=== PATIENT | male | born 1975 | race Caucasian/White ===

== ENCOUNTER 2019-06-15 20:54 | Emergency (ER) | payer OTHER, SELFPAY ==
[2019-06-15 20:58] VITALS: BP 135/101; PULSE 124; RESP 16; TEMP 36.8; O2SAT 96; BMI 22.4
== END 2019-06-16 00:31 | disposition left against medical advice (07) ==
PROVIDERS: Emergency Provider Emergency Medicine
DX: Z53.21 Procedure and treatment not carried out due to patient leaving prior to being seen by health care provider (principal)
CPT/HCPCS: 99281

== ENCOUNTER 2019-06-16 16:10 | Outpatient (CLI) | payer OTHER, SELFPAY ==
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
== END 2019-06-16 16:11 | disposition home or self-care (01) ==
LOC: RADWPI 16:12
PROVIDERS: Visit Provider Nurse Practitioner
DX: S62.336A Displaced fracture of neck of fifth metacarpal bone, right hand, initial encounter for closed fracture (principal); W22.8XXA Striking against or struck by other objects, initial encounter; M79.641 Pain in right hand

== ENCOUNTER 2019-11-22 20:24 | Emergency (ER) | payer OTHER, SELFPAY ==
[2019-11-22 20:27] VITALS: BP 149/82; PULSE 108; RESP 20; TEMP 36.8; O2SAT 95; BMI 23.0
--- NOTE | 2019-11-22 20:32 | XR_ITS ---
WS: [id number] RIGHT HAND: 3 VIEW(S) TECHNIQUE: PA, oblique and lateral. HISTORY: injury COMPARISON: 06/16/2019 Acute soft tissue and osseous injury involving the third DIP joint and distal phalanx. There is an av ulsion fracture at the DIP joint with a large amount of soft tissue injury. There is partial subluxat ion at the DIP joint. Chronic deformity involving the fifth metacarpal head and neck from an old healed fracture. XR/XR hand RT min 3V* [id number] IMPRESSION: 1. Acute avulsion fracture third finger DIP joint with adjacent soft tissue ed jessica. 2. Suspect a small amount of subluxation at the third DIP joint. 3. Remote healed fracture fifth metacarpal.
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
[2019-11-22] MEDS: LORazepam 1 mg Tablet PO (20:58)
[2019-11-22 22:14] VITALS: RESP 16
[2019-11-22] MEDS: morphine 4 mg/mL SDV 1 mL IM (22:14)
[2019-11-22] MEDS: tetanus-dipt-pertussis 0.5 mL SDV IM (22:15)
[2019-11-22 22:54] VITALS: BP 132/78; PULSE 85; RESP 18; TEMP 36.8; O2SAT 98
[2019-11-22 22:57] VITALS: BP 132/78; PULSE 85; RESP 18; TEMP 37.1; O2SAT 97
--- NOTE | 2019-11-22 23:00 | PC.NURSE ---
USE A FINGER SPLINT TO SUPPORT FINGER
--- NOTE | 2019-11-23 11:06 | DCPLANNER ---
accounting manager had message to schedule a follow up appointment for patient with ortho. accounting manager called the ortho clinic, spoke with Pat, gave clinic patients information. accounting manager was told that patients information would be printed and reviewed. Pat from ortho called case briefer back stating an appointment is scheduled for , November 24, 2019 at 12:[address] Proctor. Patient has [facility], case briefer called August with [facility], and informed her that patient was seen in the ED and that patient has a follow up appointment scheduled. accounting manager also sent patients [facility] to the [facility].
--- NOTE | 2019-11-24 14:01 | DCPLANNER ---
Patient had an appointment scheduled for 11.24.19 with ortho. Patient did attend the appointment.
== END 2019-11-22 23:01 | disposition home or self-care (01) ==
PROVIDERS: Emergency Provider Emergency Medicine; PCP Emergency Medicine Emergency Medical Services
DX: S62.632B Displaced fracture of distal phalanx of right middle finger, initial encounter for open fracture (principal); S61.312A Laceration without foreign body of right middle finger with damage to nail, initial encounter; W31.89XA Contact with other specified machinery, initial encounter; F17.210 Nicotine dependence, cigarettes, uncomplicated; Z23 Encounter for immunization
CPT/HCPCS: 12001; 12345; 29130; 73130; 90471; 90715; 96372; 99281; 99283; J2270; J3490

== ENCOUNTER 2019-11-23 15:14 | Emergency (ER) | payer OTHER, SELFPAY ==
[2019-11-23 15:31] VITALS: BP 132/70; PULSE 93; RESP 18; TEMP 36.6; O2SAT 97; BMI 23.0
--- NOTE | 2019-11-23 15:59 | W.ED.WOUNDLC ---
HPI - Wound/Laceration General: Chief Complaint: Wound/Laceration Stated Complaint: post/finger accident Time Seen by Provider: 11/23/19 15:59 Source: patient Mode of arrival: ambulatory Limitations: no limitations History of Present Illness: HPI narrative: Patient comes in for persistent bleeding from the wound site of the middle digit on the right hand. Patient appears well. Patient appears in no acute distress. Spouse states the patient had been wearing his splint and has been doing activities around the house. Review of Systems General: Reports: 10 or more systems reviewed and unremarkable except in HPI and below Skin/Breast: Reports: other (Bleeding wound right middle finger) [facility] ED PFSH: Social History Smoking and tobacco status: current every day smoker Physical Exam Const: COMMON NORMALS: no acute distress and patient oriented x3 GENERAL APPEARANCE: cooperative HENMT: COMMON NORMALS: normocephalic and Normal external nose present HEAD & SCALP: normal to inspection and normocephalic NOSE: Normal external nose present MOUTH: Normal oral and palatal mucosa present THROAT: posterior oropharynx normal Eye: GENERAL EYE: appearance normal, both eyes and all related structures Neck/C-Spine: COMMON NORMALS: full ROM Chest: COMMONS NORMALS: normal inspection of the chest Resp: COMMON NORMALS: normal respiratory effort EFFORT & INSPECTION: Yes able to speak in complete sentences Cardio: COMMON NORMALS: regular rate and regular rhythm RATE: regular rate RHYTHM: regular rhythm GI: COMMON NORMALS: non-tender Back/Pelvis: COMMON NORMALS: thoracic and lumbar spine normal to inspection Extremity: COMMON NORMALS: normal to inspection Neuro: COMMON NORMALS: patient oriented x3 and moves all extremities Psych: COMMON NORMALS: mental status grossly normal and cooperative Skin: NARRATIVE SKIN EXAM: Well approximated wound site to the right middle finger, some light oozing of serous sanguinous fluid. Course Vital Signs: Vital signs: Vital Signs Temperature 97.8 F 11/23/19 15:31 Pulse Rate 93 11/23/19 15:31 Respiratory Rate 18 11/23/19 15:31 Blood Pressure 132/70 11/23/19 15:31 Pulse Oximetry 97 11/23/19 15:31 MDM - Wound/Laceration MDM Narrative: Medical decision making narrative: Patient comes in today for complaints of drainage from wound site. On exam we noted some mild serosanguineous fluid draining from wound. 7 sutures were intact to approximate wound. Prompt cap refill was noted. No signs of infection was noted. Vital signs are normal. Differential diagnosis includes but not limited to wound infection, bleeding, dehiscence of wound. Wound was redressed with Surgicel and Telfa pad. Then a light pressure dressing was applied afterwards. Patient was recommended to leave the dressing intact and avoid removal. Recommend patient continue with plan to follow-up with Dr. Proctor's office tomorrow. Patient reported understanding agreed to plan. Discharge Plan Discharge Patient Disposition: Home, Self-Care Clinical Impression: Finger laceration Qualifiers: Encounter type: subsequent encounter Finger: middle finger Damage to nail status: with damage Foreign body presence: unspecified Laterality: right Qualified Code(s): S61.312D - Laceration without foreign body of right middle finger with damage to nail, subsequent encounter Finger fracture, right Qualifiers: Encounter type: subsequent encounter Finger: middle finger Fracture type: open Phalanx: distal Fracture alignment: displaced Fracture healing: with routine healing Qualified Code(s): S62.632D - Displaced fracture of distal phalanx of right middle finger, subsequent encounter for fracture with routine healing Condition: Stable Prescriptions: No Action hydrocodone-acetaminophen [[place]] 5-325 mg tablet 1 tab PO Q6H PRN (Reason: pain) Qty: 14 RF: 0 cephalexin [Keflex] 500 mg capsule 500 mg PO Q6H 7 Days Qty: 28 RF: 0 trazodone 50 mg Tablet 50 mg PO BEDTIME RF: 0 meloxicam 15 mg tablet 15 mg PO DAILY RF: 0 Zoloft 100 mg Tablet 150 mg PO DAILY RF: 0 baclofen 10 mg tablet 10 mg PO BID RF: 0 omeprazole 20 mg capsule,delayed release(DR/EC) 20 mg PO DAILY RF: 0 hydroxyzine HCl 25 mg tablet 25 mg PO QID PRN (Reason: unknown) RF: 0 Pravachol 20 mg tablet 20 mg PO DAILY RF: 0 Lovenox See Rx Instructions .ROUTE .COMPLEX RF: 0 melatonin 5 mg PO BEDTIME PRN (Reason: Sleep) RF: 0 Referrals: Eris Smith DO [Primary Care Provider] - Discharge Diet: Usual diet Discharge Activity: Increase activity as tolerated Activity Restrictions/Additional Instructions: Leave dressing intact. Avoid getting dressing wet. Continue with routine medications. Continue with scheduled appointment with Dr. Proctor. Coding Level of Care Code ED Account Management Specialist for Chg Fwd Exam Comprehensive
--- NOTE | 2019-11-23 16:19 | PC.NURSE ---
Jarret Smalls Apn utilized surgicel and 2x2, to promote clotting. Dressed with 1 inch kerlix, and coban. Reutilized his frog splint from last night.
== END 2019-11-23 16:48 | disposition home or self-care (01) ==
PROVIDERS: Emergency Provider Nurse Practitioner Family; PCP Emergency Medicine Emergency Medical Services
DX: S61.312A Laceration without foreign body of right middle finger with damage to nail, initial encounter (principal); S62.632A Displaced fracture of distal phalanx of right middle finger, initial encounter for closed fracture; X58.XXXA Exposure to other specified factors, initial encounter; F17.210 Nicotine dependence, cigarettes, uncomplicated
CPT/HCPCS: 12345; 99281; 99282; A6446

== ENCOUNTER 2019-11-30 18:11 | Emergency (ER) | payer OTHER, SELFPAY ==
[2019-11-30 18:13] VITALS: BP 144/97; PULSE 96; RESP 20; TEMP 36.1; O2SAT 99; BMI 23.7
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
[2019-11-30 18:32] VITALS: O2SAT 98
[2019-11-30] MEDS: LORazepam 1 mg Tablet PO (18:32)
[2019-11-30] MEDS: HYDROcodone-acetaminophen 10-325 mg Tablet 1 TAB PO ×2 (18:32→19:53)
--- NOTE | 2019-11-30 19:12 | PC.NURSE ---
Patient report received from NATHANIEL Pandya and care transferred to NATHANIEL Garcia
[2019-11-30 19:43] VITALS: BP 139/88; PULSE 85; RESP 16; O2SAT 96
[2019-11-30 19:55] VITALS: BP 127/86; PULSE 84; RESP 16; O2SAT 97
== END 2019-11-30 19:56 | disposition home or self-care (01) ==
PROVIDERS: Emergency Provider Emergency Medicine; PCP Emergency Medicine Emergency Medical Services
DX: S42.022A Displaced fracture of shaft of left clavicle, initial encounter for closed fracture (principal); V86.59XA Driver of other special all-terrain or other off-road motor vehicle injured in nontraffic accident, initial encounter; F17.210 Nicotine dependence, cigarettes, uncomplicated
CPT/HCPCS: 12345; 71101; 73030; 99281; 99283

== ENCOUNTER 2019-12-07 11:30 | Day surgery (SDC) | payer OTHER, SELFPAY ==
[2019-12-06 10:27] VITALS: BMI 23.7
[2019-12-07] VITALS (10 sets, daily range): BP systolic 135–170; BP diastolic 94–104; PULSE 87–98; RESP 18–23; TEMP 36.9–37.2; O2SAT 94–98
--- NOTE | 2019-12-07 | SCC_ITS ---
Procedure Done: Open reduction and internal fixation left distal clavicle 10.9 seconds of fluoroscopic guidance, for a cumulative dose of 0.98 mGy, was provided to Dr. Proctor by the radiology department. C-arm images of the LT clavicle were saved for the patient's permanent record. DWAIN
--- NOTE | 2019-12-07 | XR_ITS ---
WS: [id number] C-ARM RADIOGRAPHS LEFT CLAVICLE; 3 IMAGES HISTORY: ORIF clavicle COMPARISON: 11/30/2019 Plate and screw fixation distal clavicle fracture. Fracture has been reduced and now in good alignmen t. XR/[place] [id number] IMPRESSION: Plate and screw fixation and reduction distal clavicle fracture.
--- NOTE | 2019-12-07 11:51 | ANES.PREANE2 ---
Pre-Anesthetic Assessment Pre-Anesthetic Assessment: Height/Weight: Height 1.83 m Weight 79.379 kg Preop Diagnosis: Left distal clavicle Proposed Procedure: Operation Date: 12/07/19 12:40 Proposed Procedures p ORIF Clavicle 61567 S42.022A(Left) - Luis Proctor MD Social: Social History: Alcohol, Tobacco and No alcohol Exam: Pre-Anes Outpt Exam: alert, oriented x 3, clear to auscultation bilaterally and regular rate & rhythm Airway: Submandibular: WNL Cervical ROM: WNL MP: 2 Dentition: Other (teeth ok) History/ROS: No significant history except as noted Pulmonary: Pulmonary: None reported CV/HEM: CV/HEM: None reported : : None reported Hepatic: Hepatic: None reported GI: GI: GERD Metabolic: Metabolic: Hyperlipidemia Musc/skel: Musc/skel: Lower Back Pain Neuropsych: Neuropsych: None reported Anesthetic Plan: ASA status: 2 Anesthesia: Anesthesia Evaluation and General Risk of > 500 ml blood loss (7ml/kg in children): No PFSH Anesthesia PFSH: Medical History Gastroesophageal reflux Social History Smoking and tobacco status: current every day smoker Data Anesthesia Cardiac Studies: No Data to Display
[2019-12-07] MEDS: sodium chloride 0.9% 1,000 ML 30 ML IV (12:10)
--- NOTE | 2019-12-07 13:37 | W.PM.OPSUD ---
Surgery/Procedure H&P Update DATE OF PROCEDURE: December 07, 2019 DATE H&P PERFORMED: 12/01/19 PREOP DIAGNOSIS: Left distal clavicle PLANNED PROCEDURE: Operation Date: 12/07/19 12:40 Proposed Procedures p ORIF Clavicle 01521 S42.022A(Left) - Luis Proctor MD
--- NOTE | 2019-12-07 15:25 | P.OP_ITS ---
Operative Report Date of procedure: December 07, 2019 Pre-op Diagnosis: Left distal clavicle Post-op diagnosis: same Post-op Findings: Same Procedure Done: Open reduction and internal fixation left distal clavicle Pathology: none sent Surgeon: Luis Proctor Anesthesia: General Estimated blood loss (mL): 100 Complications: None Findings: Patient had an oblique displaced fracture of the distal clavicle just medial to the coracoclavicular ligaments with approximately 3 cm dorsal displacement of the proximal fragment relative to the distal. There is no appreciable comminution Procedure: The patient was taken to the operating room and given a general anesthesia. He was given 2 g of Ancef. He was prepped and draped in usual fashion. A timeout was performed. The 8 cm long incision was made beginning from the acromioclavicular joint extending medially over the fracture and medial shaft of the clavicle. Dissection was carried down easily identifying the medial fragment. Deeper dissection revealed the distal clavicle fragment. The dorsal surface was freed of soft tissue to the level of the acromioclavicular joint. A Marilynn Variax plate was then contoured over the dorsal clavicle. It was fixed laterally with combination of locking screws and medially with 4 bicortical screws the last engaging only on the dorsal cortex. Intraoperative i maging showed satisfactory position of the hardware. The wound was irrigated with saline. Deep tissues were closed with 0 and 2-0 Vicryl. The skin was closed with skin shirin. Sterile dressings were applied. The patient was placed in a sling, extubated, and taken to recovery room in stable condition.
[2019-12-07] MEDS: oxyCODONE 5 mg IR Tab/Cap PO (16:38)
== END 2019-12-07 16:47 | disposition home or self-care (01) ==
PROVIDERS: Visit Provider Orthopaedic Surgery
PROC: (CPT 23515; principal; 2019-12-07 12:40)
DX: S42.032A Displaced fracture of lateral end of left clavicle, initial encounter for closed fracture (principal); V86.35XA Unspecified occupant of 3- or 4- wheeled all-terrain vehicle (ATV) injured in traffic accident, initial encounter; F17.210 Nicotine dependence, cigarettes, uncomplicated; K21.9 Gastro-esophageal reflux disease without esophagitis; E78.5 Hyperlipidemia, unspecified
CPT/HCPCS: 23515; 12345; 73000; 76000; C1713; J0131; J0690; J1100; J1580; J2001; J2704; J2795; J3010; J3490; J7030

== ENCOUNTER → 2020-01-23 08:29 | Outpatient (BNVA) | payer OTHER, SELFPAY | PROVIDERS: Visit Provider Orthopaedic Surgery | DX: Z47.89 Encounter for other orthopedic aftercare (principal); S42.022D Displaced fracture of shaft of left clavicle, subsequent encounter for fracture with routine healing; W19.XXXD Unspecified fall, subsequent encounter | CPT/HCPCS: 73000 ==

== ENCOUNTER → 2020-02-21 08:31 | Outpatient (BNVA) | payer OTHER, SELFPAY | PROVIDERS: Visit Provider Orthopaedic Surgery | DX: Z47.89 Encounter for other orthopedic aftercare (principal); S42.022D Displaced fracture of shaft of left clavicle, subsequent encounter for fracture with routine healing; X58.XXXD Exposure to other specified factors, subsequent encounter | CPT/HCPCS: 73000 ==

== ENCOUNTER → 2020-03-20 08:15 | Outpatient (BNVA) | payer OTHER, SELFPAY | PROVIDERS: Visit Provider Orthopaedic Surgery | DX: Z47.89 Encounter for other orthopedic aftercare (principal); S42.022D Displaced fracture of shaft of left clavicle, subsequent encounter for fracture with routine healing; X58.XXXD Exposure to other specified factors, subsequent encounter | CPT/HCPCS: 73000 ==

== ENCOUNTER → 2020-05-02 15:40 | Outpatient (BNVA) | payer OTHER, SELFPAY | PROVIDERS: Visit Provider Orthopaedic Surgery | DX: Z47.89 Encounter for other orthopedic aftercare (principal); S42.022D Displaced fracture of shaft of left clavicle, subsequent encounter for fracture with routine healing; X58.XXXD Exposure to other specified factors, subsequent encounter | CPT/HCPCS: 73000 ==

== ENCOUNTER → 2020-05-26 11:16 | Outpatient (BNVA) | payer OTHER, SELFPAY | PROVIDERS: Visit Provider Orthopaedic Surgery | DX: Z20.828 Contact with and (suspected) exposure to other viral communicable diseases (principal); Z01.812 Encounter for preprocedural laboratory examination | CPT/HCPCS: 87635 ==

== ENCOUNTER 2020-05-31 08:07 | Day surgery (SDC) | payer OTHER, SELFPAY ==
[2020-05-29 13:45] VITALS: BMI 23.0
[2020-05-31] VITALS (7 sets, daily range): BP systolic 109–171; BP diastolic 73–97; PULSE 73–90; RESP 16–20; TEMP 36.3–36.6; O2SAT 95–99
--- NOTE | 2020-05-31 08:50 | P.ANESASSM_ITS ---
Pre-Anesthetic Assessment Pre-Anesthetic Assessment: Height/Weight: Height 1.83 m Weight 77.111 kg Temp Pulse Resp BP Pulse Ox 97.3 F L 90 18 132/94 97 05/31/20 08:31 05/31/20 08:31 05/31/20 08:31 05/31/20 08:31 05/31/20 08:31 Preop Diagnosis: Painful hardward left clavicle Proposed Procedure: Operation Date: 05/31/20 09:30 Proposed Procedures p hardware removal left clavicle 68886 T84.84XA(Left) - Luis Proctor MD Was Beta Stephanie taken within 24 hours: N/A Last intake: Intake Last Liquid Date 05/30/20 Last Liquid Time 23:30 Last Solid Date 05/30/20 Last Solid Time 19:00 Social: Social History: Alcohol and Tobacco Comment: Daily whiskey Exam: Pre-Anes Outpt Exam: alert, oriented x 3 and regular rate & rhythm Ad ditional Exam Findings (including area of procedure): BBS decreased, rhonci Airway: Submandibular: WNL Cervical ROM: WNL MP: 2 Dentition: Full Additional comments: Poor dentition Pulmonary: Pulmonary: COPD GI: GI: GERD Musc/skel: Musc/skel: OA/DJD Comments: Chronic back pain Anesthetic Plan: ASA status: 3 Anesthesia: General Risk of > 500 ml blood loss (7ml/kg in children): No PFSH Anesthesia PFSH: Medical History Gastroesophageal reflux Social History Smoking and tobacco status: current every day smoker Data Anesthesia Cardiac Studies: No Data to Display
[2020-05-31] MEDS: sodium chloride 0.9% 1,000 ML 30 ML IV (08:51)
--- NOTE | 2020-05-31 10:16 | W.PM.OPSUD ---
Surgery/Procedure H&P Update DATE OF PROCEDURE: May 31, 2020 DATE H&P PERFORMED: 05/02/20 PREOP DIAGNOSIS: Painful hardward left clavicle PLANNED PROCEDURE: Operation Date: 05/31/20 09:30 Proposed Procedures p hardware removal left clavicle 76190 T84.84XA(Left) - Luis Proctor MD
--- NOTE | 2020-05-31 11:16 | P.OP_ITS ---
Operative Report Date of procedure: May 31, 2020 Pre-op Diagnosis: Painful hardward left clavicle Post-op diagnosis: same Post-op Findings: The patient had union of his clavicle shaft. There was some elevation of the distal clavicle off the distal fragment but bruising hardware, regardless, appears stated Procedure Done: Removal deep hardware left shoulder Pathology: none sent Anesthesia: General Estimated blood loss (mL): 25 Findings: The patient appeared to have union of his left clavicle. His plate and screws appeared to Condition: stable Disposition: PACU Procedure: The patient was taken to the operating room and given a general anesthesia. He was given a gram of Ancef. He was prepped and draped in the supine position with his left shoulder exposed. A 8 cm long incision was made centered over his palpable clavicle plate in line with the previous incision. Dissection was carried down full-thickness to the plate. Soft tissues were elevated from the plate with a [place]. The screws and plate were elevated without difficulty. Prominent bone around the screw holes was rongeured smooth. The anterior and posterior deep tissues were reapproximated with 0 Vicryl. The skin was closed with skin shirin. The incision was covered with Xeroflo gauze, 4 x 4's, and a Tegaderm gauze.
--- NOTE | 2020-05-31 11:35 | SUR.PHASEI ---
pt awake alert talkative USING URINAL, VOIDED 300M. PT REQUESTS SOMETHING TO EAT AND DRINK, WILL GIVE REPORT TO OPS.
--- NOTE | 2020-05-31 11:53 | ANE.PACU2 ---
Inpatient post-anesthesia follow up: Airway intact: Yes Vital signs: Temperature 97.9 F Pulse Rate 83 Respiratory Rate 16 Blood Pressure 131/73 Pulse Oximetry 99 Oxygen Delivery Me thod Room Air Oxygen Flow Rate Fraction of Inspir ed Oxygen Hydration adequate: Yes Nausea and vomiting: No Pain level: 2 Mental status: Baseline
== END 2020-05-31 12:12 | disposition home or self-care (01) ==
PROVIDERS: Visit Provider Orthopaedic Surgery
PROC: (CPT 20680; principal; 2020-05-31 09:30)
DX: T84.84XA Pain due to internal orthopedic prosthetic devices, implants and grafts, initial encounter (principal); J44.9 Chronic obstructive pulmonary disease, unspecified; M19.90 Unspecified osteoarthritis, unspecified site; K21.9 Gastro-esophageal reflux disease without esophagitis; F17.210 Nicotine dependence, cigarettes, uncomplicated
CPT/HCPCS: 20680; 12345; J0690; J1100; J1580; J1885; J2405; J2704; J2710; J3010; J3490; J7030

== ENCOUNTER 2020-09-16 14:11 | Emergency (ER) | payer OTHER, SELFPAY ==
[2020-09-16 14:12] VITALS: BP 125/87; PULSE 107; RESP 18; TEMP 36.5; O2SAT 100; BMI 24.4
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
[2020-09-16 15:16] VITALS: BP 117/97; PULSE 124; RESP 12; O2SAT 97
[2020-09-16 17:08] VITALS: BP 119/77; PULSE 91; RESP 12; O2SAT 97
[2020-09-16] MEDS: tetanus-dipt-pertussis 0.5 mL SDV IM (17:34)
[2020-09-16] MEDS: lidocaine 1% INJ 20 mL INJECTION ×2 (17:34→17:35)
== END 2020-09-16 18:18 | disposition home or self-care (01) ==
PROVIDERS: Emergency Provider Emergency Medicine
DX: S51.812A Laceration without foreign body of left forearm, initial encounter (principal); F10.920 Alcohol use, unspecified with intoxication, uncomplicated; F17.210 Nicotine dependence, cigarettes, uncomplicated; V59.9XXA Occupant (driver) (passenger) of pick-up truck or van injured in unspecified traffic accident, initial encounter; Z23 Encounter for immunization
CPT/HCPCS: 12002; 73070; 73100; 90471; 90715; 99283

== ENCOUNTER 2020-09-27 00:40 | Emergency (ER) | payer OTHER, SELFPAY ==
[2020-09-27 00:49] VITALS: BP 136/95; PULSE 91; RESP 18; TEMP 36.7; O2SAT 97; BMI 24.9
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
[2020-09-27 01:12] VITALS: BP 136/95; PULSE 91; RESP 18; O2SAT 97
== END 2020-09-27 01:05 | disposition home or self-care (01) ==
LOC: ER 01:00
PROVIDERS: Emergency Provider Emergency Medicine
DX: Z46.89 Encounter for fitting and adjustment of other specified devices (principal); F17.210 Nicotine dependence, cigarettes, uncomplicated
CPT/HCPCS: 99281

== ENCOUNTER 2021-06-03 08:06 | Outpatient (CLI) | payer OTHER, SELFPAY ==
--- NOTE | 2021-06-03 08:31 | US_ITS ---
WS: [id number] RIGHT UPPER QUADRANT ULTRASOUND HISTORY: ELEVATED LFTS COMPARISON: None available. Liver: 18.3 cm in length. Moderately enlarged liver. Very mild coarse echotexture. Surface of the ori er is normal. No mass or bile duct dilatation. Portal Vein: Normal hepatopetal flow with monophasic waveform. Gallbladder: Normally distended gallbladder with no stones or wall thickening. CBD: 0.3 cm Pancreas: Not visualized. Right kidney: 13.6 cm in length. Normal size and echogenicity. No hydronephrosis or mass. Aorta and IVC: Unremarkable abdominal aorta and IVC. No ascites. US/US gall bladder [id number] IMPRESSION: 1. Moderate hepatomegaly with mild coarsened echotexture likely due to hepatic steatosis. 2. No bile duct dilatation. 3. Normal gallbladder.
== END 2021-06-03 08:07 | disposition home or self-care (01) ==
LOC: RAD 08:09
PROVIDERS: Visit Provider Nurse Practitioner
DX: R94.5 Abnormal results of liver function studies (principal); R16.0 Hepatomegaly, not elsewhere classified
CPT/HCPCS: 76705

== ENCOUNTER 2023-06-24 05:05 | Emergency (ER) | payer OTHER, SELFPAY ==
[2023-06-24] VITALS (9 sets, daily range): BP systolic 119–149; BP diastolic 83–98; PULSE 91–105; RESP 16–20; TEMP 36.6; O2SAT 90–95; BMI 29.1
--- NOTE | 2023-06-24 05:17 | XRR_ITS ---
PROCEDURE INFORMATION: Exam: XR Left Ribs with PA Chest Exam date and time: 06/24/2023 5:44 AM Age: 48 years old Clinical indication: Chest wall pain; Left; Additional info: Left lateral chest wall pain TECHNIQUE: Imaging protocol: Radiologic exam of the left ribs with PA chest. Views: 3 views COMPARISON: CR XR ribs LT 2V* [id number] 07/23/2020 2:32 PM FINDINGS: Lungs: Hazy left basilar opacity which could be secondary to atelectasis or pneumonia. Pleural spaces: Unremarkable. No pleural effusion. No pneumothorax. Heart/Mediastinum: There is mild cardiomegaly. Bones/joints: No fracture. XR/XR ribs LT mn 3V w CXR1V [id number] IMPRESSION: 1. No fracture. 2. Hazy left basilar opacity which could be secondary to atelectasis or pneumonia. 3. Mild cardiomegaly.
--- NOTE | 2023-06-24 05:19 | ECG_ITS ---
[facility] Test Date: 2023-06-24 Pat Name: Jose Pappas Department: Room: Gender: Male Raisin Washer: : 1975 Requested By: Jordan Flood Order Number: [id number] James MD: Araceli Bernardo M.D. Measurements Intervals [place] Rate: 86 P: 42 NM: 140 QRS: 21 QRSD: 97 T: 36 QT: 358 QTc: 430 Interpretive Statements SINUS RHYTHM No previous ECG available for comparison Electronically Signed On 06-24-2023 21:37:31 RISK INVESTIGATOR by Araceli Bernardo M.D. [id number]
--- NOTE | 2023-06-24 05:20 | W.ED.CHESTPA ---
Documented by User: Jordan Flood DO 06/24/23 05:36 HPI - Chest Pain General: Chief Complaint: Abdominal Pain Stated Complaint: flank pain, CP Time Seen by Provider: 06/24/23 05:08 History of Present Illness: Patient presents to the ER with complaints of left lateral chest wall type pain. Patient states he woke up about 4 AM with a cough. Patient said he felt a pop in his left lateral area. Now it hurts to take a big deep breath or to push on this area. Patient has never had this before. Patient denies any overt sickness such as fever chills shortness of breath nausea or vomiting. EMS did give patient 4 mg Zofran and 75 mcg of fentanyl on route. Patient did show up on 2 L of oxygen with an O2 sat of 90%. Was transferred to the room his O2 sat raised to 94 to 95% on 2 L. Patient does not normally wear oxygen or have breathing problems. Review of Systems General: Reports: 10 or more systems reviewed and unremarkable except in HPI and below PFSH ED PFSH: Medical History (Updated 06/24/23 @ 08:06 by Sarabjit Ramirez DO) Gastroesophageal reflux Social History Smoking and tobacco/nicotine status: current every day tobacco/nicotine user Physical Exam Const: COMMON NORMALS: no acute distress, average body habitus, patient oriented x3, no limitations, healthy appearing, alert and well nourished HENMT: COMMON NORMALS: normocephalic, atraumatic, hearing grossly normal bilaterally, external ears normal, EAC's normal, Normal external nose present, moist oral mucous membranes and oropharynx normal HEAD & SCALP: normocephalic and atraumatic NOSE: Normal external nose present EXTERNAL EAR: Yes external ears normal EXTERNAL AUDITORY CANAL: EAC's normal Neck/C-Spine: COMMON NORMALS: no JVD Chest: COMMONS NORMALS: normal inspection of the chest; negative for normal palpation of entire chest wall (Palpation of left lateral chest wall approximately 6 rib midaxillary line r) Resp: COMMON NORMALS: normal respiratory effort, No retractions, No use of accessory muscles and clear to auscultation bilaterally AUSCULTATION: clear to auscultation bilaterally OTHER: Reproduces pain. Sharp stabbing in nature. Cardio: COMMON NORMALS: no JVD, regular rate, regular rhythm, S1 normal heart sound present, S2 normal heart sound present, No gallops present (Cardio), No clicks present (Cardio), No murmurs present (Cardio) and No rub (Cardio) RATE: regular rate RHYTHM: regular rhythm HEART SOUNDS: S1 normal heart sound present and S2 normal heart sound present GI: COMMON NORMALS: Normal to inspection, nondistended, normoactive bowel sounds present, Soft to palpation, non-tender, No hepatosplenomegaly present and no masses PALPATION: Yes Soft to palpation and Yes No hepatosplenomegaly present Neuro: COMMON NORMALS: patient oriented x3 SENSORIUM/ORIENTATION: Yes alert Course Vital Signs: Vital signs: Vital Signs Temperature 97.9 F 06/24/23 05:05 Pulse Rate 105 H 06/24/23 08:35 Respiratory Rate 20 H 06/24/23 06:11 Blood Pressure 119/83 06/24/23 08:35 Pulse Oximetry 95 06/24/23 08:35 Oxygen Delivery Me thod Room Air 06/24/23 07:43 Oxygen Flow Rate 2 06/24/23 07:00 MDM - Chest Pain Medical Records I reviewed the patient's medical records. Lab Data I reviewed the patient's lab results. 06/24/23 05:16 06/24/23 05:16 Radiology Impressions Ribs X-Ray 06/24/23 05:17 IMPRESSION: 1. No fracture. 2. Hazy left basilar opacity which could be secondary to atelectasis or pneumonia. 3. Mild cardiomegaly. Chest CTA 06/24/23 05:57 IMPRESSION: 1. No CTA evidence of pulmonary embolism, thoracic aortic aneurysm or thoracic aortic dissection. 2. Left posterior minimally displaced 9th rib fracture (series 4, image 49). 3. Mild dependent atelectasis in the posterior lungs, most prominent in the lung bases. 4. Nonspecific mildly enlarged mediastinal lymph nodes, as noted above. Laboratory Results WBC 10.88 10^3/uL (3.29-11.43) 06/24/23 05:16 RBC 5.00 10^6/uL (3.85-5.65) 06/24/23 05:16 Hgb 15.50 g/dL (11.27-16.99) 06/24/23 05:16 Hct 46.0 % (37-53) 06/24/23 05:16 MCV 92.0 fl (82-101) 06/24/23 05:16 MCH 31.0 pg (27-33) 06/24/23 05:16 MCHC 33.7 g/dL (30-55) 06/24/23 05:16 RDW 13.6 % (12.1-15.1) 06/24/23 05:16 Plt Count 222 10^3/cmm (157-399) 06/24/23 05:16 MPV 10.6 fL (7.4-10.4) H 06/24/23 05:16 Neut % (Auto) 70.4 % 06/24/23 05:16 Lymph % (Auto) 16.9 % 06/24/23 05:16 [place] % (Auto) 8.6 % 06/24/23 05:16 Eos % (Auto) 3.5 % 06/24/23 05:16 Baso % (Auto) 0.3 % 06/24/23 05:16 Neut # (Auto) 7.66 10^3/uL (1.8-7.7) 06/24/23 05:16 Lymph # (Auto) 1.8 10^3/uL (0.8-4.8) 06/24/23 05:16 [place] # (Auto) 0.9 10^3/uL (0.2-0.9) 06/24/23 05:16 Eos # (Auto) 0.4 10^3/uL (0.0-0.8) 06/24/23 05:16 Baso # (Auto) 0.0 10^3/uL (0.0-0.1) 06/24/23 05:16 Nucleated RBC % (auto) 0 % 06/24/23 05:16 Nucleated RBCs # 0.0 /100WBC 06/24/23 05:16 Sodium 135 mmol/L (136-145) L 06/24/23 05:16 Potassium 3.9 mmol/L (3.5-5.1) 06/24/23 05:16 Chloride 98 mmol/L (98-107) 06/24/23 05:16 Carbon Dioxide 24 mmol/L (22-29) 06/24/23 05:16 Anion Gap 16.9 (5-19) 06/24/23 05:16 BUN 13 mg/dL (6-20) 06/24/23 05:16 Creatinine 1.2 mg/dL (0.7-1.2) 06/24/23 05:16 GFR Calculation 64.6 mL/min (90-130) L 06/24/23 05:16 Glucose 170 mg/dL (65-115) H 06/24/23 05:16 Calculated Osmolality 284 mOsm/kg (285-295) L 06/24/23 05:16 Calcium 9.1 mg/dL (8.5-10.5) 06/24/23 05:16 Total Bilirubin 0.4 mg/dL (0.15-1.2) 06/24/23 05:16 AST 17 U/L (0-40) 06/24/23 05:16 ALT 18 U/L (0-41) 06/24/23 05:16 Alkaline Phosphatase 90 U/L (40-130) 06/24/23 05:16 Total Protein 7.2 g/dL (6.6-8.7) 06/24/23 05:16 Albumin 4.1 g/dL (3.5-5.2) 06/24/23 05:16 Globulin 3.1 g/dL (1.3-4.6) 06/24/23 05:16 All radiology interpretation(s) finalized by discharge EKG Data EKG 1: I personally reviewed and interpreted this EKG as follows: EKG interpretation date: 06/24/23 EKG interpretation time: 05:30 Prior EKG tracings: not available for review Interpretation: EKG shows ventricular rate 86 bpm, NC interval 140, QRS duration 97, QTc of 402, sinus rhythm, no ST-T wave changes Discharge Plan Discharge Patient Disposition: Home Clinical Impression: Fracture of rib due to cough Condition: Stable Prescriptions: New tramadol 50 mg tablet 50 mg PO Q6H PRN (Reason: pain) Qty: 14 0RF Medrol (Nehemias) 4 mg tablets,dose pack See Rx Instructions .ROUTE .COMPLEX Qty: 21 0RF Rx Instructions: orally per package directions albuterol sulfate 90 mcg/actuation HFA aerosol inhaler 2 inh INHALATION Q4H PRN (Reason: shortness of breath or wheezing) Qty: 18 0RF Advair Diskus 250-50 mcg/dose blister with device 1 inh inhalation BID Qty: 60 0RF No Action cephalexin 500 mg capsule 500 mg PO Q8H Qty: 30 0RF trazodone 50 mg Tablet 50 mg PO BEDTIME sertraline [Zoloft] 100 mg Tablet 150 mg PO DAILY omeprazole 20 mg capsule,delayed release(DR/EC) 20 mg PO BEDTIME hydroxyzine HCl 25 mg tablet 25 mg PO QID PRN (Reason: unknown) pravastatin [Pravachol] 20 mg tablet 20 mg PO DAILY melatonin 5 mg PO BEDTIME PRN (Reason: Sleep) Discharge Orders: Discharge ED (Routine); Ordered 06/24/23 Ordered By: Sarabjit Ramirez Discharge Diet: Usual diet Discharge Activity: Increase activity as tolerated Patient Instructions: Opioid Safety, Pain Management Activity Restrictions/Additional Instructions: Thank you for choosing [facility] for your healthcare needs today. Please realize this is an emergency room and that we are providing you with a medical screening exam and this may not be complete and all inclusive of all the testing and or work up that you may need to determine your ailment or severity of your illness. It is very important that you follow up as instructed or that you return to the Emergency Department should you have concerns or if your condition changes or worsens in any way. You are seen today for shortness of breath cough on the imaging there is no sign of pneumonia or pneumothorax you do have a left ninth rib fracture. Recommend starting Advair 1 puff twice daily albuterol as needed steroid taper and tramadol for pain follow-up with your primary care doctor to further evaluate your lung function including possible pulmonary function tests for COPD. Sign Out Sign Out Data: Patient Sign Out occurred on 06/24/23 at 07:08. Patient's care was discussed, and care was transferred from Jordan Flood DO to Sarabjit Ramirez DO. Coding Level of Care Code ED Mental Telepathist for Chg Fwd Documented by User: Sarabjit Ramirez DO 06/24/23 08:45 HPI - Chest Pain General: Chief Complaint: Abdominal Pain Stated Complaint: flank pain, CP Time Seen by Provider: 06/24/23 05:08 [facility] ED PFSH: Medical History (Updated 06/24/23 @ 08:06 by Sarabjit Ramirez DO) Gastroesophageal reflux Social History Smoking and tobacco/nicotine status: current every day tobacco/nicotine user Course Vital Signs: Vital signs: Vital Signs Temperature 97.9 F 06/24/23 05:05 Pulse Rate 105 H 06/24/23 08:35 Respiratory Rate 20 H 06/24/23 06:11 Blood Pressure 119/83 06/24/23 08:35 Pulse Oximetry 95 06/24/23 08:35 Oxygen Delivery Me thod Room Air 06/24/23 07:43 Oxygen Flow Rate 2 06/24/23 07:00 MDM - Chest Pain Medical Decision Making Care assumed at change of shift patient has started to desat Dr. powell had ordered a CTA of his chest. He states he has a history of COPD I do not find a pulmonary function test he does have some flattening of his diaphragm on the plain chest x-ray. There is 1/[address] rib fracture [address] there is a question of pneumonia on the chest x-ray however I believe that is atelectasis because he is not taking deep breath there is no finding of infiltrate on the CTA and no PE. Suspect he did fracture of the ribs secondary to coughing. He denies any urinary tract symptoms. He did desat but as we looked into it more it was only when he fell asleep he has a known history of sleep apnea additionally he did receive narcotic pain medications. When awake and alert his saturations are normal. Be discharged home on tramadol for pain. Additionally gave him albuterol to use as needed start on Advair 1 puff twice daily and a steroid taper. Encouraged him to follow-up with primary care to further evaluate COPD and potential management. May benefit from PFTs. Lab Data 06/24/23 05:16 06/24/23 05:16 Radiology Impressions Ribs X-Ray 06/24/23 05:17 IMPRESSION: 1. No fracture. 2. Hazy left basilar opacity which could be secondary to atelectasis or pneumonia. 3. Mild cardiomegaly. Chest CTA 06/24/23 05:57 IMPRESSION: 1. No CTA evidence of pulmonary embolism, thoracic aortic aneurysm or thoracic aortic dissection. 2. Left posterior minimally displaced 9th rib fracture (series 4, image 49). 3. Mild dependent atelectasis in the posterior lungs, most prominent in the lung bases. 4. Nonspecific mildly enlarged mediastinal lymph nodes, as noted above. Laboratory Results WBC 10.88 10^3/uL (3.29-11.43) 06/24/23 05:16 RBC 5.00 10^6/uL (3.85-5.65) 06/24/23 05:16 Hgb 15.50 g/dL (11.27-16.99) 06/24/23 05:16 Hct 46.0 % (37-53) 06/24/23 05:16 MCV 92.0 fl (82-101) 06/24/23 05:16 MCH 31.0 pg (27-33) 06/24/23 05:16 MCHC 33.7 g/dL (30-55) 06/24/23 05:16 RDW 13.6 % (12.1-15.1) 06/24/23 05:16 Plt Count 222 10^3/cmm (157-399) 06/24/23 05:16 MPV 10.6 fL (7.4-10.4) H 06/24/23 05:16 Neut % (Auto) 70.4 % 06/24/23 05:16 Lymph % (Auto) 16.9 % 06/24/23 05:16 [place] % (Auto) 8.6 % 06/24/23 05:16 Eos % (Auto) 3.5 % 06/24/23 05:16 Baso % (Auto) 0.3 % 06/24/23 05:16 Neut # (Auto) 7.66 10^3/uL (1.8-7.7) 06/24/23 05:16 Lymph # (Auto) 1.8 10^3/uL (0.8-4.8) 06/24/23 05:16 [place] # (Auto) 0.9 10^3/uL (0.2-0.9) 06/24/23 05:16 Eos # (Auto) 0.4 10^3/uL (0.0-0.8) 06/24/23 05:16 Baso # (Auto) 0.0 10^3/uL (0.0-0.1) 06/24/23 05:16 Nucleated RBC % (auto) 0 % 06/24/23 05:16 Nucleated RBCs # 0.0 /100WBC 06/24/23 05:16 Sodium 135 mmol/L (136-145) L 06/24/23 05:16 Potassium 3.9 mmol/L (3.5-5.1) 06/24/23 05:16 Chloride 98 mmol/L (98-107) 06/24/23 05:16 Carbon Dioxide 24 mmol/L (22-29) 06/24/23 05:16 Anion Gap 16.9 (5-19) 06/24/23 05:16 BUN 13 mg/dL (6-20) 06/24/23 05:16 Creatinine 1.2 mg/dL (0.7-1.2) 06/24/23 05:16 GFR Calculation 64.6 mL/min (90-130) L 06/24/23 05:16 Glucose 170 mg/dL (65-115) H 06/24/23 05:16 Calculated Osmolality 284 mOsm/kg (285-295) L 06/24/23 05:16 Calcium 9.1 mg/dL (8.5-10.5) 06/24/23 05:16 Total Bilirubin 0.4 mg/dL (0.15-1.2) 06/24/23 05:16 AST 17 U/L (0-40) 06/24/23 05:16 ALT 18 U/L (0-41) 06/24/23 05:16 Alkaline Phosphatase 90 U/L (40-130) 06/24/23 05:16 Total Protein 7.2 g/dL (6.6-8.7) 06/24/23 05:16 Albumin 4.1 g/dL (3.5-5.2) 06/24/23 05:16 Globulin 3.1 g/dL (1.3-4.6) 06/24/23 05:16 Discharge Plan Discharge Patient Disposition: Home Clinical Impression: Fracture of rib due to cough Condition: Stable Prescriptions: New tramadol 50 mg tablet 50 mg PO Q6H PRN (Reason: pain) Qty: 14 0RF Medrol (Nehemias) 4 mg tablets,dose pack See Rx Instructions .ROUTE .COMPLEX Qty: 21 0RF Rx Instructions: orally per package directions albuterol sulfate 90 mcg/actuation HFA aerosol inhaler 2 inh INHALATION Q4H PRN (Reason: shortness of breath or wheezing) Qty: 18 0RF Advair Diskus 250-50 mcg/dose blister with device 1 inh inhalation BID Qty: 60 0RF No Action cephalexin 500 mg capsule 500 mg PO Q8H Qty: 30 0RF trazodone 50 mg Tablet 50 mg PO BEDTIME sertraline [Zoloft] 100 mg Tablet 150 mg PO DAILY omeprazole 20 mg capsule,delayed release(DR/EC) 20 mg PO BEDTIME hydroxyzine HCl 25 mg tablet 25 mg PO QID PRN (Reason: unknown) pravastatin [Pravachol] 20 mg tablet 20 mg PO DAILY melatonin 5 mg PO BEDTIME PRN (Reason: Sleep) Discharge Orders: Discharge ED (Routine); Ordered 06/24/23 Ordered By: Sarabjit Ramirez Discharge Diet: Usual diet Discharge Activity: Increase activity as tolerated Patient Instructions: Opioid Safety, Pain Management Activity Restrictions/Additional Instructions: Thank you for choosing [facility] for your healthcare needs today. Please realize this is an emergency room and that we are providing you with a medical screening exam and this may not be complete and all inclusive of all the testing and or work up that you may need to determine your ailment or severity of your illness. It is very important that you follow up as instructed or that you return to the Emergency Department should you have concerns or if your condition changes or worsens in any way. You are seen today for shortness of breath cough on the imaging there is no sign of pneumonia or pneumothorax you do have a left ninth rib fracture. Recommend starting Advair 1 puff twice daily albuterol as needed steroid taper and tramadol for pain follow-up with your primary care doctor to further evaluate your lung function including possible pulmonary function tests for COPD. Sign Out Sign Out Data: Patient Sign Out occurred on 06/24/23 at 07:08. Patient's care was discussed, and care was transferred from Jordan Flood DO to Sarabjit Ramirez DO. Coding Level of Care Code ED Mental Telepathist for Dianeyls Bundy
[2023-06-24 05:24] LABS: Basophils % 0.3 %; Eosinophils # 0.4 10^3/uL (0.0-0.8); Eosinophils % 3.5 %; Lymphocytes # 1.8 10^3/uL (0.8-4.8); Lymphocytes % 16.9 %; Mean Corpuscular HGB Conc 33.7 g/dL (30-55); Mean Platelet Volume 10.6 fL (7.4-10.4); Monocytes # 0.9 10^3/uL (0.2-0.9); Monocytes % 8.6 %; Neutrophils # 7.66 10^3/uL (1.8-7.7); Neutrophils % 70.4 %; Nucleated Red Blood Cells % 0 %; Platelet Count 222 10^3/cmm (157-399); Red Cell Distribution Width 13.6 % (12.1-15.1); White Blood Count 10.88 10^3/uL (3.29-11.43)
[2023-06-24 05:36] LABS: Alanine Aminotransferase 18 U/L (0-41); Albumin Level 4.1 g/dL (3.5-5.2); Alkaline Phosphatase 90 U/L (40-130); Anion Gap 16.9 (5-19); Aspartate Amino Transferase 17 U/L (0-40); Blood Urea Nitrogen 13 mg/dL (6-20); Calcium 9.1 mg/dL (8.5-10.5); Carbon Dioxide 24 mmol/L (22-29); Chloride 98 mmol/L (98-107); Globulin 3.1 g/dL (1.3-4.6); Glomerular Filtration Rate 64.6 mL/min (90-130); Glucose 170 mg/dL (65-115); Osmolality Calculated 284 mOsm/kg (285-295); Potassium 3.9 mmol/L (3.5-5.1); Sodium 135 mmol/L (136-145); Total Bilirubin 0.4 mg/dL (0.15-1.2); Total Protein 7.2 g/dL (6.6-8.7)
[2023-06-24] MEDS: ketorolac 30 mg/mL INJ IVP (05:36)
[2023-06-24] MEDS: ipratropium-albuterol 3 mL Neb INHALATION (05:54)
--- NOTE | 2023-06-24 05:57 | CTR_ITS ---
PROCEDURE INFORMATION: Exam: CTA Chest With Contrast Exam date and time: 06/24/2023 6:31 AM Age: 48 years old Clinical indication: Shortness of breath; Chest wall pain; Additional info: Hypoxia, left lat chest wall pain TECHNIQUE: Imaging protocol: Computed tomographic angiography of the chest with contrast. Exam focused on the arteries. 3D rendering (Not supervised by radiologist): MIP and/or 3D reconstructed images were created by the technologist. Radiation optimization: All CT scans at this facility use at least one of these dose optimization techniques: automated exposure control; mA and/or kV adjustment per patient size (includes targeted exams where dose is matched to clinical indication); or iterative reconstruction. Contrast material: OMNI 350; Contrast volume: 100 ml; Contrast route: INTRAVENOUS (IV); COMPARISON: CR (CHEST, ) 06/24/2023 5:44 AM RADIATION DOSE METRICS: Total DLP (mGy-cm): 518.08 FINDINGS: Pulmonary arteries: No CT evidence for segmental pulmonary emboli. The main pulmonary arteries and outflow trunk are unremarkable. Aorta: No thoracic aortic aneurysm. No thoracic aortic dissection. Trachea: The central airway is normal. Lungs: There are normal lung volumes. Mild dependent atelectasis is seen in the posterior lungs, most prominent in the lung bases. No interlobular septal thickening or honeycombing to give CT evidence of interstitial lung disease. No regions of consolidation or ground-glass opacity to give CT evidence of pneumonia. Pleural spaces: No pneumothorax. No pleural effusion. Heart: The heart size is within normal limits. The RV/LV ratio is normal at 1 (no CT evidence of RV strain). There is no pericardial effusion. No coronary arterial atherosclerotic vascular calcifications. Lymph nodes: Prevascular and subcarinal enlarged 1 x 1 cm lymph nodes are seen. Bones/joints: Left posterior minimally displaced 9th rib fracture is seen (series 4, image 49). No other definite rib fractures seen. The sternum and thoracic spine regions appear unremarkable. Soft tissues: Unremarkable. Other findings: Tiny hiatal hernia is seen. Some calcified granulomas of the liver and spleen are seen. CT/CT angio chest PE protcl [id number] IMPRESSION: 1. No CTA evidence of pulmonary embolism, thoracic aortic aneurysm or thoracic aortic dissection. 2. Left posterior minimally displaced 9th rib fracture (series 4, image 49). 3. Mild dependent atelectasis in the posterior lungs, most prominent in the lung bases. 4. Nonspecific mildly enlarged mediastinal lymph nodes, as noted above.
[2023-06-24] MEDS: methylPREDNISolone sod succ 40 mg/mL INJ IVP (06:14)
[2023-06-24] MEDS: diphenhydrAMINE 50 mg/mL SDV 1mL IVP (06:18)
[2023-06-24] MEDS: iohexol 350 mg/mL 500 mL Btl (per mL) IV (06:42)
== END 2023-06-24 08:39 | disposition home or self-care (01) ==
PROVIDERS: Emergency Medicine; Emergency Provider Family Medicine
DX: S22.32XA Fracture of one rib, left side, initial encounter for closed fracture (principal); X50.9XXA Other and unspecified overexertion or strenuous movements or postures, initial encounter; Z72.0 Tobacco use
CPT/HCPCS: 71101; 71275; 80053; 85025; 93005; 94640; 96374; 96375; 99285; J1200; J1885; J2920; Q9967

== ENCOUNTER 2023-11-17 20:05 | Emergency (ER) | payer OTHER, SELFPAY ==
--- NOTE | 2023-11-17 20:10 | USR_ITS ---
PROCEDURE INFORMATION: Exam: US Duplex Left Lower Extremity Veins, Limited Exam date and time: 11/17/2023 8:23 PM Age: 48 years old Clinical indication: Pain; Leg, lower; Left TECHNIQUE: Imaging protocol: Real-time duplex ultrasound of the left extremity with 2-D may scale, color Doppler flow and spectral waveform analysis including responses to compression and other maneuvers (when performed) with image documentation. Limited exam focused on the left lower extremity veins. COMPARISON: No relevant prior studies available. FINDINGS: Left deep veins: Unremarkable. The common femoral, femoral, proximal profunda femoral and popliteal veins are patent without thrombus. Normal Doppler waveforms. Normal compressibility and/or augmentation response. Superficial veins: Greater saphenous vein at the saphenofemoral junction is patent without thrombus. Soft tissues: Unremarkable. US/CV venous duplex [facility] [id number] IMPRESSION: No evidence of deep vein thrombosis.
--- NOTE | 2023-11-17 20:10 | USR_ITS ---
PROCEDURE INFORMATION: Exam: US Duplex Left Lower Extremity Arteries Or Arterial Bypass Grafts Exam date and time: 11/17/2023 8:35 PM Age: 48 years old Clinical indication: Leg, lower; Patient HX: Cramping pain left posterior calf today. Nonsmoker, no dm. ; Additional info: Leg pain TECHNIQUE: Imaging protocol: Left Real-time duplex scan of the arteries or arterial bypass grafts of the left lower extremity with 2-D may scale, color Doppler flow and spectral waveform analysis. Images documented and saved. COMPARISON: [place] [id number] 11/17/2023 8:23 PM FINDINGS: Left common femoral artery: No occlusion or significant stenosis. Normal waveform. Left superficial femoral artery: No occlusion or significant stenosis. Normal waveform. Left popliteal artery: No occlusion or significant stenosis. Normal waveform. Left calf/foot arteries: No occlusion or significant stenosis in the visualized arteries. Normal waveforms. Dorsalis pedis artery [place] patent. US/[place] [id number] IMPRESSION: No stenosis or occlusion.
[2023-11-17 21:11] VITALS: BP 132/86; PULSE 63; RESP 18; TEMP 36.7; O2SAT 94
[2023-11-17 22:50] VITALS: BP 132/85; PULSE 54; RESP 16; O2SAT 96
--- NOTE | 2023-11-17 23:08 | W.ED.EXTPRO ---
Documented by User: BERNARD Brian 11/17/23 23:13 HPI - Extremity Problem General: Chief complaint: Extremity Injury, Lower Stated complaint: sudden left leg/calf pain worried clot Time Seen by Provider: 11/17/23 22:35 Source: patient Mode of arrival: ambulatory Limitations: no limitations History of Present Illness: Patient is a 48-year-old male presenting to the emergency department complaining of left calf pain onset past couple days. Patient arrives stating he is worried he has a blood clot due to there being no trauma or injury associated with the pain. He does not have a history of blood clots and has no recent prolonged travel or recent surgery. He has been taking muscle relaxers and pain medications at home but states this has not been helping. He states he got concerned today when he started having pain worsening with ambulation. No distal neurovascular deficits noted. No unilateral leg swelling. No other symptoms to report at this time. MD Complaint: extremity pain (calf) Onset (ago): day(s) Location: left Radiation: none Relieving factors: nothing Exacerbating factors: weight bearing Associated symptoms: Deny chest pain, fever(s) or rash Review of Systems General: Reports: 10 or more systems reviewed and unremarkable except in HPI and below Const: Denies: fever(s), chills or fatigue Eyes: Denies: change in vision ENMT: Denies: throat pain, ear or mastoid pain or nasal discharge Card: Denies: chest pain, palpitations, swelling of feet/ankles or lightheadedness Resp: Denies: dyspnea, productive cough or wheezing GI: Denies: abdominal pain, nausea, vomiting, diarrhea or constipation : Denies: flank pain, difficulty urinating, dysuria or urinary frequency Musc: Reports: extremity pain (left calf); Denies: neck pain, back pain, extremity swelling, joint pain or joint swelling Skin/Breast: Denies: rash Neuro: Denies: headache(s), numbness in extremities or weakness in extremities PFS ED PFSH: Medical History Gastroesophageal reflux Social History Smoking and tobacco/nicotine status: current every day tobacco/nicotine user Physical Exam Const: COMMON NORMALS: no acute distress, patient oriented x3 and no limitations GENERAL APPEARANCE: cooperative, comfortable and well developed ORIENTATION/CONSCIOUSNESS: Yes awake, Yes oriented to person, Yes oriented to place and Yes oriented to time HENMT: COMMON NORMALS: normocephalic, atraumatic and hearing grossly normal bilaterally HEAD & SCALP: normocephalic and atraumatic Eye: COMMON NORMALS: Equal, round and reactive pupils present, EOMs intact bilaterally and conjunctivae normal CONJUNCTIVA: Yes conjunctivae normal PUPIL: Yes Equal, round and reactive pupils present Neck/C-Spine: COMMON NORMALS: full ROM, supple and no JVD Resp: COMMON NORMALS: normal respiratory effort, No retractions, No use of accessory muscles and clear to auscultation bilaterally AUSCULTATION: clear to auscultation bilaterally Cardio: COMMON NORMALS: no JVD, regular rate, regular rhythm, No clicks present (Cardio), No murmurs present (Cardio) and No rub (Cardio) RATE: regular rate RHYTHM: regular rhythm Extremity: COMMON NORMALS: normal to inspection, full ROM and capillary refill normal NARRATIVE EXTREMITY EXAM: Mild tenderness to palpation of the left calf noted. There is no edema and he has 2+ PT/DP pulses. Negative Homans' sign. Neuro: COMMON NORMALS: patient oriented x3, moves all extremities, no focal motor deficits and no sensory deficits noted SENSORIUM/ORIENTATION: Yes oriented to person, Yes oriented to place and Yes oriented to time Psych: COMMON NORMALS: mental status grossly normal and Normal thought process present THOUGHT PROCESS: Normal thought process present Skin: COMMON NORMALS: no rashes or lesions noted GENERAL SKIN EXAM: no rashes or lesions noted Course Vital Signs: Vital signs: Vital Signs Temperature 98.0 F 11/17/23 21:11 Pulse Rate 54 L 11/17/23 22:50 Respiratory Rate 16 11/17/23 22:50 Blood Pressure 132/85 11/17/23 22:50 Pulse Oximetry 96 11/17/23 22:50 Oxygen Delivery Me thod Room Air 11/17/23 21:11 MDM - Extremity (Nontraumatic) Medical Decision Making Patient presented for evaluation of left lower extremity pain for the past 2 days, stating he is worried he had a blood clot. No history of previous blood clots. No concerning history related to blood clots. Vitals on arrival normal and his physical examination did reveal some tenderness palpation of the left calf, though no other abnormalities noted. Duplex scanning venous/artery lower extremity did not demonstrate any signs of blood clots, and upon further questioning of the patient I do believe this to be musculoskeletal in nature, most likely muscle cramp versus musculoskeletal strain. He will continue muscle relaxers at home as well as pain medications he already possesses. If his condition does not improve or worsens, he will follow-up with primary care for further outpatient imaging, such as MRI. Strict return precautions were given. Patient's case was discussed with supervising ED physician, Dr. Flood, who agrees with disposition. Lab Data Radiology Impressions Duplex Scan Lower Extremity Artery 11/17/23 20:10 IMPRESSION: No stenosis or occlusion. Venous Duplex 11/17/23 20:10 IMPRESSION: No evidence of deep vein thrombosis. All radiology interpretation(s) finalized by discharge Discharge Plan Discharge Patient Disposition: Home Clinical Impression: Pain of left calf Condition: Stable Prescriptions: No Action cephalexin 500 mg capsule 500 mg PO Q8H Qty: 30 0RF trazodone 50 mg Tablet 50 mg PO BEDTIME sertraline [Zoloft] 100 mg Tablet 150 mg PO DAILY omeprazole 20 mg capsule,delayed release(DR/EC) 20 mg PO BEDTIME hydroxyzine HCl 25 mg tablet 25 mg PO QID PRN (Reason: unknown) pravastatin [Pravachol] 20 mg tablet 20 mg PO DAILY melatonin 5 mg PO BEDTIME PRN (Reason: Sleep) tramadol 50 mg tablet 50 mg PO Q6H PRN (Reason: pain) Qty: 14 0RF Medrol (Nehemias) 4 mg tablets,dose pack See Rx Instructions .ROUTE .COMPLEX Qty: 21 0RF Rx Instructions: orally per package directions albuterol sulfate 90 mcg/actuation HFA aerosol inhaler 2 inh INHALATION Q4H PRN (Reason: shortness of breath or wheezing) Qty: 18 0RF Advair Diskus 250-50 mcg/dose blister with device 1 inh inhalation BID Qty: 60 0RF Discharge Orders: Discharge ED (Routine); Ordered 11/17/23 Ordered By: Lamont Lozano Discharge Diet: Usual diet Discharge Activity: Increase activity as tolerated Patient Instructions: Leg Cramps (ED) Activity Restrictions/Additional Instructions: Muscle relaxers and pain medications at home. Gentle range of motion of the left lower extremity. If you continue to have pain, please follow-up with primary care for further workup, possibly including MRI. Your ultrasound today was negative for any blood clots. Coding Level of Care Code ED Compactor Driver for Chg [facility] Documented by User: Sarabjit Ramirez DO 11/18/23 09:53 HPI - Extremity Problem General: Chief complaint: Extremity Injury, Lower Stated complaint: sudden left leg/calf pain worried clot Time Seen by Provider: 11/17/23 22:35 PFS ED PFSH: Medical History Gastroesophageal reflux Social History Smoking and tobacco/nicotine status: current every day tobacco/nicotine user Course Vital Signs: Vital signs: Vital Signs Temperature 98.0 F 11/17/23 21:11 Pulse Rate 54 L 11/17/23 22:50 Respiratory Rate 16 11/17/23 22:50 Blood Pressure 132/85 11/17/23 22:50 Pulse Oximetry 96 11/17/23 22:50 Oxygen Delivery Me thod Room Air 11/17/23 21:11 MDM - Extremity (Nontraumatic) Medical Decision Making Patient presented for evaluation of left lower extremity pain for the past 2 days, stating he is worried he had a blood clot. No history of previous blood clots. No concerning history related to blood clots. Vitals on arrival normal and his physical examination did reveal some tenderness palpation of the left calf, though no other abnormalities noted. Duplex scanning venous/artery lower extremity did not demonstrate any signs of blood clots, and upon further questioning of the patient I do believe this to be musculoskeletal in nature, most likely muscle cramp versus musculoskeletal strain. He will continue muscle relaxers at home as well as pain medications he already possesses. If his condition does not improve or worsens, he will follow-up with primary care for further outpatient imaging, such as MRI. Strict return precautions were given. Patient's case was discussed with supervising ED physician, Dr. Flood, who agrees with disposition. Chart reviewed Lab Data Radiology Impressions Duplex Scan Lower Extremity Artery 11/17/23 20:10 IMPRESSION: No stenosis or occlusion. Venous Duplex 11/17/23 20:10 IMPRESSION: No evidence of deep vein thrombosis. Discharge Plan Discharge Patient Disposition: Home Clinical Impression: Pain of left calf Condition: Stable Prescriptions: No Action cephalexin 500 mg capsule 500 mg PO Q8H Qty: 30 0RF trazodone 50 mg Tablet 50 mg PO BEDTIME sertraline [Zoloft] 100 mg Tablet 150 mg PO DAILY omeprazole 20 mg capsule,delayed release(DR/EC) 20 mg PO BEDTIME hydroxyzine HCl 25 mg tablet 25 mg PO QID PRN (Reason: unknown) pravastatin [Pravachol] 20 mg tablet 20 mg PO DAILY melatonin 5 mg PO BEDTIME PRN (Reason: Sleep) tramadol 50 mg tablet 50 mg PO Q6H PRN (Reason: pain) Qty: 14 0RF Medrol (Nehemias) 4 mg tablets,dose pack See Rx Instructions .ROUTE .COMPLEX Qty: 21 0RF Rx Instructions: orally per package directions albuterol sulfate 90 mcg/actuation HFA aerosol inhaler 2 inh INHALATION Q4H PRN (Reason: shortness of breath or wheezing) Qty: 18 0RF Advair Diskus 250-50 mcg/dose blister with device 1 inh inhalation BID Qty: 60 0RF Discharge Orders: Discharge ED (Routine); Ordered 11/17/23 Ordered By: Lamont Lozano Discharge Diet: Usual diet Discharge Activity: Increase activity as tolerated Patient Instructions: Leg Cramps (ED) Activity Restrictions/Additional Instructions: Muscle relaxers and pain medications at home. Gentle range of motion of the left lower extremity. If you continue to have pain, please follow-up with primary care for further workup, possibly including MRI. Your ultrasound today was negative for any blood clots. Coding Level of Care Code ED Compactor Driver for Dianelys Bundy
== END 2023-11-17 22:53 | disposition home or self-care (01) ==
PROVIDERS: Emergency Provider Physician Assistant
DX: M79.662 Pain in left lower leg (principal); Z72.0 Tobacco use
CPT/HCPCS: 93926; 93971; 99284

== ENCOUNTER 2023-11-30 16:35 | Emergency (ER) | payer OTHER, SELFPAY ==
[2023-11-30 16:41] VITALS: BP 167/100; PULSE 67; RESP 18; TEMP 36.6; O2SAT 93
--- NOTE | 2023-11-30 17:25 | XRR_ITS ---
PROCEDURE INFORMATION: Exam: XR Lumbosacral Spine Exam date and time: 11/30/2023 5:51 PM Age: 48 years old Clinical indication: Low back pain; Additional info: Back pain x2 weeks with radiation down lle TECHNIQUE: Imaging protocol: Radiologic exam of the lumbosacral spine. Views: 2 or 3 views. COMPARISON: No relevant prior studies available. FINDINGS: Bones/joints: Normal. No acute fracture. Normal alignment. Soft tissues: Unremarkable. XR/XR lumbar spine 2-3V* [id number] IMPRESSION: No acute findings.
--- NOTE | 2023-11-30 17:26 | W.ED.BACK ---
HPI - Back Pain/Injury General: Chief Complaint: Back Pain/Injury Stated Complaint: back pain, leg numbness, tingling Time Seen by Provider: 11/30/23 17:15 Source: patient Mode of arrival: ambulatory Limitations: no limitations History of Present Illness: Patient is a 48-year-old male who presents to the emergency department complaining of left lower back pain for 2 weeks. Patient states he was lifting a large water trough at initial onset when he felt sudden sharp shooting pain that has steadily worsened over the past 2 weeks. He notes that the pain radiates down the lateral aspect of his left leg down to his calf. He has no prior back surgeries though he states he has had pain similar to this in the past that just went away on its own. He notes no relief from [id number] remedies or treatments. No direct trauma reported. He denies any saddle anesthesia, bowel or bladder incontinence, or fevers. No history of IV drug use. No other symptoms to report at this time. MD elicited complaint: back pain Onset (ago): week(s) (2) Timing: constant and progressively worsening Severity: moderate Similar Symptoms Previously: Yes Quality: sharp Location: left lower back Radiation: left leg below the knee Exacerbating factors: movement Relieving factors: none Context: while lifting Associated symptoms: Deny abdominal pain, chills, fever(s), nausea or vomiting Review of Systems General: Reports: 10 or more systems reviewed and unremarkable except in HPI and below Const: Denies: fever(s) or chills Card: Denies: chest pain Resp: Denies: dyspnea or productive cough GI: Denies: abdominal pain, nausea, vomiting or diarrhea : Denies: flank pain Musc: Reports: back pain and extremity pain; Denies: neck pain, extremity swelling, joint pain, joint swelling, joint redness, joint warmth, limited range of motion or muscle weakness Skin/Breast: Denies: rash Neuro: Denies: headache(s), numbness in extremities or weakness in extremities [facility] ED PFSH: Medical History (Updated 11/30/23 @ 18:45 by BERNARD Brian) Gastroesophageal reflux Social History Smoking and tobacco/nicotine status: current every day tobacco/nicotine user Physical Exam Const: COMMON NORMALS: no acute distress, patient oriented x3, no limitations, healthy appearing, alert and well nourished HENMT: COMMON NORMALS: normocephalic and atraumatic HEAD & SCALP: normocephalic and atraumatic Neck/C-Spine: COMMON NORMALS: full ROM, supple and no meningeal signs Resp: COMMON NORMALS: normal respiratory effort, No use of accessory muscles and clear to auscultation bilaterally AUSCULTATION: clear to auscultation bilaterally Cardio: COMMON NORMALS: regular rate and regular rhythm RATE: regular rate RHYTHM: regular rhythm Back/Pelvis: OTHER: No spinous process tenderness of the thoracic or lumbar spine. There is limited range of motion from pain at the lumbar spine. Moderate tenderness to palpation of the left lower paralumbar muscles. He has good strength at the hip, knee, and ankle joint. No distal sensory changes at this time. Good pulses. Antalgic gait ambulating to the emergency department. Extremity: COMMON NORMALS: normal to inspection, full ROM, capillary refill normal, no joint enlargement and no clubbing, cyanosis or edema Neuro: COMMON NORMALS: patient oriented x3, moves all extremities, no focal motor deficits and no sensory deficits noted SENSORIUM/ORIENTATION: Yes alert MENINGEAL SIGNS: Yes no meningeal signs Skin: COMMON NORMALS: no rashes or lesions noted GENERAL SKIN EXAM: no rashes or lesions noted Course Vital Signs: Vital signs: Vital Signs Temperature 98 F 11/30/23 16:41 Pulse Rate 67 11/30/23 16:41 Respiratory Rate 18 11/30/23 16:41 Blood Pressure 167/100 11/30/23 16:41 Pulse Oximetry 93 11/30/23 16:41 Oxygen Delivery Me thod Room Air 11/30/23 16:41 MDM - Back Pain/Injury Medical Decision Making Patient presented for 2 weeks of low back pain radiating down the left lower extremity. He had no red flag back symptoms. X-ray did not demonstrate any acute findings. He does note improvement of his pain after being given shot of Norflex, shot of Decadron, and a shot of Toradol. Additionally he states that he is set up to begin physical therapy. I informed him that if he continues to have pain he needs to follow-up with primary care to get with orthopedics. Other return precautions given and he will be discharged home at this time. Labs Radiology Impressions Lumbar Spine X-Ray 11/30/23 17:25 IMPRESSION: No acute findings. All radiology interpretation(s) finalized by discharge Discharge Plan Discharge Patient Disposition: Home Clinical Impression: Low back strain Condition: Stable Prescriptions: New cyclobenzaprine 10 mg tablet 10 mg PO TID Qty: 15 0RF prednisone 20 mg tablet 60 mg PO ONCE 5 Days Qty: 15 0RF ketorolac 10 mg tablet 10 mg PO Q8H PRN (Reason: pain) Qty: 15 0RF No Action cephalexin 500 mg capsule 500 mg PO Q8H Qty: 30 0RF trazodone 50 mg Tablet 50 mg PO BEDTIME sertraline [Zoloft] 100 mg Tablet 150 mg PO DAILY omeprazole 20 mg capsule,delayed release(DR/EC) 20 mg PO BEDTIME hydroxyzine HCl 25 mg tablet 25 mg PO QID PRN (Reason: unknown) pravastatin [Pravachol] 20 mg tablet 20 mg PO DAILY melatonin 5 mg PO BEDTIME PRN (Reason: Sleep) tramadol 50 mg tablet 50 mg PO Q6H PRN (Reason: pain) Qty: 14 0RF Medrol (Nehemias) 4 mg tablets,dose pack See Rx Instructions .ROUTE .COMPLEX Qty: 21 0RF Rx Instructions: orally per package directions albuterol sulfate 90 mcg/actuation HFA aerosol inhaler 2 inh INHALATION Q4H PRN (Reason: shortness of breath or wheezing) Qty: 18 0RF Advair Diskus 250-50 mcg/dose blister with device 1 inh inhalation BID Qty: 60 0RF Discharge Orders: Discharge ED (Routine); Ordered 11/30/23 Ordered By: Lamont Lozano Discharge Diet: Usual diet Discharge Activity: Increase activity as tolerated Patient Instructions: Low Back Strain (ED) Activity Restrictions/Additional Instructions: Take medications as prescribed. Gently increase your range of motion as tolerated. Please follow-up with primary care if your pain continues to worsen or does not improve. Return with any new or worsening. Coding Level of Care Code ED [place] for Dianelys Bundy
[2023-11-30] MEDS: dexamethasone 10 mg/mL INJ IM (17:41)
[2023-11-30] MEDS: ketorolac 60 mg/2 mL INJ IM (17:41)
[2023-11-30] MEDS: orphenadrine 30 mg/mL Inj 2 mL 60 MG IM (17:41)
[2023-11-30 18:52] VITALS: BP 167/100; PULSE 67; RESP 18; TEMP 36.6; O2SAT 93
== END 2023-11-30 18:53 | disposition home or self-care (01) ==
PROVIDERS: Emergency Provider Physician Assistant
DX: S39.012A Strain of muscle, fascia and tendon of lower back, initial encounter (principal); Z72.0 Tobacco use; X50.0XXA Overexertion from strenuous movement or load, initial encounter
CPT/HCPCS: 72100; 96372; 99284; J1100; J1885; J2360